=== PATIENT | male | born 1970 | race Caucasian/White ===

== ENCOUNTER → 2023-09-10 14:10 | Outpatient (REF) | payer OTHER, BC, SELFPAY ==
[2023-09-10 18:57] LABS: Hepatitis B Surface Antigen Negative (Negative)
[2023-09-10 19:15] LABS: Hepatitis B Surface Antibody Negative; Hepatitis C Antibody Negative (Negative)
[2023-09-10 22:44] LABS: HIV Combo Negative (Negative)
== END ==
LOC: OHS 14:10
PROVIDERS: ATTENDING PHYSICIAN Nurse Practitioner Family
DX: Z57.8 Occupational exposure to other risk factors (principal)
CPT/HCPCS: 36415; 86706; 86803; 87340; 87389

== ENCOUNTER → 2024-05-11 16:13 | Outpatient (REF) | payer OTHER, BC, SELFPAY ==
[2024-05-12 21:43] LABS: Hepatitis B Surface Antibody Positive
== END ==
LOC: REG 16:13
PROVIDERS: ATTENDING PHYSICIAN Nurse Practitioner; FAMILY PHYSICIAN Family Medicine
DX: Z23 Encounter for immunization (principal)
CPT/HCPCS: 36415; 86706

== ENCOUNTER → 2025-02-15 13:23 | Outpatient (REF) | payer BC, SELFPAY ==
[2025-02-15 13:49] VITALS: BP 148/80; BP_SYST 88
== END ==
LOC: RADI 13:23
PROVIDERS: ATTENDING PHYSICIAN Nurse Practitioner Family; FAMILY PHYSICIAN Family Medicine
DX: E04.1 Nontoxic single thyroid nodule (principal)
CPT/HCPCS: 10005; 88173